=== PATIENT | female | born 1950 | race Caucasian/White ===

== ENCOUNTER 2021-04-19 16:28 | Emergency (ER) | payer MEDICARE, SELFPAY ==
[2021-04-19 16:45] VITALS: BP 151/77; PULSE 89; RESP 18; TEMP 36.9; O2SAT 100
--- NOTE | 2021-04-19 16:49 | ED.GENADULT ---
HPI - General Adult General Chief complaint: Urogenital-Female Stated complaint: blood in urine Time Seen by Provider: 04/19/21 16:49 Source: patient Mode of arrival: ambulatory Limitations: no limitations History of Present Illness HPI narrative: 62-year-old female patient presents to the [facility] with complaints of urinary symptoms that started today. Patient states she has had increase in frequency decreased urine output as well as burning pain with urination. Denies fevers, body aches or chills. Denies any nausea, vomiting or diarrhea. Denies any low back pain. Related Data Home Medications Medication Instructions Recorded Confirmed fluticasone furoate-vilanterol inh INHALATION DAILY 04/19/21 [Breo Ellipta] theophylline 400 mg PO HS 04/19/21 04/19/21 Allergies Allergy/AdvReac Type Severity Reaction Status Date / Time No Known Allergies Allergy Verified 04/19/21 16:54 Review of Systems Review of Systems: CONSTITUTIONAL: Denies fever, chills, or sweats. EYES: Denies visual changes, redness, or discharge. ENT: Denies rhinorrhea, congestion, sore throat, or otalgia. CARDIOVASCULAR: Denies chest pain, palpitations, or edema. RESPIRATORY: Denies cough or dyspnea. GASTROINTESTINAL: Denies abdominal pain, nausea, vomiting, or diarrhea. GENITOURINARY: Positive dysuria or hematuria. SKIN: Denies rash or itching. MUSCULOSKELETAL: Denies back pain, joint pain, or myalgia. NEUROLOGIC: Denies headache, numbness, or weakness. PSYCHIATRIC: Denies anxiety or depression. [facility] Past Medical History Medical History (Updated 04/19/21 @ 17:00 by PRANAV Ferrari) Asthma Hypertension Restless leg syndrome Comments At the time of my signature I agree with nursing past medical history, surgical, social, and family history. There is no relevant family history pertinent to the presenting complaint. Exam Narrative: GENERAL: Well-appearing, well-nourished, and in no acute distress. HEAD: Normocephalic, atraumatic. EYES: PERRLA and EOMI. ENT: Nares clear, no rhinorrhea or epistaxis. Mucous membranes moist. NECK: Supple. No lymphadenopathy CHEST: Clear to auscultation. No respiratory distress. HEART: Regular rate and rhythm. No murmur heard. Normal peripheral pulses. ABDOMEN: Soft, nontender, nondistended, normal active bowel sounds. No CVA tenderness on percussion EXTREMITIES: Normal range of motion. No edema. SKIN: Warm, dry, no rash. NEURO: No focal deficits. Alert and oriented x3. Course Vital Signs Vital signs: Vital Signs Temperature 36.9 C 04/19/21 16:45 Pulse Rate 89 04/19/21 16:45 Respiratory Rate 18 04/19/21 16:45 Blood Pressure 151/77 H 04/19/21 16:45 Pulse Oximetry 100 04/19/21 16:45 Temperature 36.9 C 04/19/21 16:45 Pulse Rate 89 04/19/21 16:45 Respiratory Rate 18 04/19/21 16:45 Blood Pressure 151/77 H 04/19/21 16:45 Pulse Oximetry 100 04/19/21 16:45 Vital signs reviewed The patient has been informed that they may have pre-hypertension or Hypertension based on a BP reading in the department. I recommend that the patient call the primary care provider listed on their discharge instructions or a physician of their choice this week to arrange follow up for further evaluation of possible pre-hypertension or Hypertension Medical Decision Making Differential Diagnosis Differential Diagnosis: Differential diagnosis: Uncomplicated lower UTI, uncomplicated UTI, pyelonephritis Patient based on her symptoms as well as her urine dip it does appear that she has a urinary tract infection. We will start her on antibiotics today and send her urine out for culture. Vital Signs Vital Signs: Vital Signs Temperature 36.9 C 04/19/21 16:45 Pulse Rate 89 04/19/21 16:45 Respiratory Rate 18 04/19/21 16:45 Blood Pressure 151/77 H 04/19/21 16:45 Pulse Oximetry 100 04/19/21 16:45 Temperature 36.9 C 04/19/21 16:45 Pulse Rate 89 04/19/21 16:45 Respiratory
== END 2021-04-19 17:00 | disposition home or self-care (01) ==
PROVIDERS: Emergency Provider Nurse Practitioner Family
DX: N30.01 Acute cystitis with hematuria (principal); J45.909 Unspecified asthma, uncomplicated; I10 Essential (primary) hypertension; G25.81 Restless legs syndrome
CPT/HCPCS: 81003; 87077; 87086; 87186; 99203; G0463